=== PATIENT | female | born 1940 | race Hispanic/Latino ===

== ENCOUNTER 2017-09-14 07:55 | Day surgery (SDC) | payer OTHER, MEDICARE ==
[~2017-09-14] VITALS: Ht 142.2 cm; Wt 70.1 kg
[2017-09-14 08:45] VITALS: BP 177/85
[2017-09-14] MEDS ORDERED: VALS40TA10 PO (09:16)
[2017-09-14] MEDS ORDERED: METF10004 PO (09:16)
[2017-09-14] MEDS ORDERED: PANT40TA25 PO (09:16)
[2017-09-14] MEDS ORDERED: PREG50 PO (09:16)
[2017-09-14] MEDS ORDERED: METO50TA18 PO (09:16)
[2017-09-14] MEDS ORDERED: SITA100T12 PO (09:16)
[2017-09-14] MEDS ORDERED: LORA10CA9 PO (09:16)
[2017-09-14] MEDS ORDERED: NITR0.4T50 SL (09:16)
[2017-09-14] MEDS ORDERED: GLIP5TAB11 PO (09:16)
[2017-09-14] MEDS ORDERED: ATOR20TA65 PO (09:16)
[2017-09-14] MEDS ORDERED: ALBU90AE IH (09:16)
[2017-09-14] MEDS ORDERED: IRON1TAB91 PO (09:16)
[2017-09-14] MEDS ORDERED: SODIUM CHLORIDE 0.9% 1000ML 1,000 ML IV ONE (09:18)
[2018-01-20] MEDS ORDERED: POTA-79 PO (16:03)
[2018-01-20] MEDS ORDERED: LATA2.5D15 OP (16:03)
[2018-01-20] MEDS ORDERED: RISE35TA12 PO (16:03)
[2018-01-20] MEDS ORDERED: SITA100T12 PO (16:03)
[2018-01-20] MEDS ORDERED: FURO40TA7 PO (16:03)
== END 2017-09-14 10:16 | disposition home or self-care (01) ==
LOC: DAH 07:55 → ENDO 07:55
PROVIDERS: ATTEND Internal Medicine Gastroenterology
DX: I85.00 Esophageal varices without bleeding (principal); B19.20 Unspecified viral hepatitis C without hepatic coma; K74.60 Unspecified cirrhosis of liver; I25.10 Atherosclerotic heart disease of native coronary artery without angina pectoris; I12.0 Hypertensive chronic kidney disease with stage 5 chronic kidney disease or end stage renal disease; E11.22 Type 2 diabetes mellitus with diabetic chronic kidney disease; N18.6 End stage renal disease; E11.39 Type 2 diabetes mellitus with other diabetic ophthalmic complication; H40.9 Unspecified glaucoma; M19.90 Unspecified osteoarthritis, unspecified site; Z79.899 Other long term (current) drug therapy; Z99.2 Dependence on renal dialysis
CPT/HCPCS: 43235; 82948 ×2; 93005; A4606; J7030; G9654

== ENCOUNTER → 2017-11-19 | Outpatient (CLI) | payer MEDICARE, OTHER ==
[~2017-11-19] MED LIST: ALBU90AE IH; ATOR20TA65 PO; FURO40TA7 PO; GLIP5TAB11 PO; IRON1TAB41 PO; IRON1TAB91 PO; LATA2.5D15 OP; LORA10CA9 PO; METF10004 PO; METO50TA18 PO; NITR0.4T50 SL; PANT40TA25 PO; POTA-79 PO; PREG50 PO; REGADENOSON 0.4 MG/5 ML PF SYG IVP SCH; RISE35TA12 PO; SITA100T12 PO; VALS40TA11 PO
== END | disposition home or self-care (01) ==
LOC: SHCH 10:00
PROVIDERS: ATTEND Internal Medicine Cardiovascular Disease
DX: I25.119 Atherosclerotic heart disease of native coronary artery with unspecified angina pectoris (principal); E78.2 Mixed hyperlipidemia
CPT/HCPCS: 78452; 93017; 96374; A9500 ×2; J2785

== ENCOUNTER → 2018-01-06 | Outpatient (CLI) | payer MEDICARE, OTHER ==
[~2018-01-06] MED LIST changes: -REGADENOSON 0.4 MG/5 ML PF SYG IVP SCH
== END | disposition home or self-care (01) ==
LOC: SHCH 11:33
PROVIDERS: ATTEND Internal Medicine Cardiovascular Disease
DX: I48.0 Paroxysmal atrial fibrillation (principal)
CPT/HCPCS: 93306

== ENCOUNTER 2018-01-22 07:13 | Day surgery (SDC) | payer OTHER ==
[2018-01-20 13:31] VITALS: BP 125/67
[2018-01-20 13:31] LABS: BASOPHILS % (AUTO) 0.4 % (0.0-5.0); EOSINOPHILS % (AUTO) 2.3 % (0.0-8.0); HEMATOCRIT 29.5 % (36-48); LYMPHOCYTES % (AUTO) 18.2 % (21.0-51.0); MEAN CORPUSCULAR HEMOGLOBIN 31.3 pg (27.0-33.0); MEAN CORPUSCULAR HGB CONC 33.4 g/dL (32.0-36.0); MEAN CORPUSCULAR VOLUME 93.5 fL (79-99); NEUTROPHILS % (AUTO) 72.1 % (40.0-77.0); PLATELET COUNT (AUTO) 88 K/uL (130-400); RED BLOOD CELL COUNT(AUTO) 3.15 MIL/uL (4.00-5.50); RED CELL DISTRIBUTION WIDTH 16.3 % (11.0-15.5); WHITE BLOOD COUNT (AUTO) 2.7 K/uL (4.8-10.8)
[2018-01-20 13:41] LABS: CREATININE 1.5 mg/dL (0.5-1.5); POTASSIUM 5.2 mmol/L (3.5-5.1)
[2018-01-20 13:44] LABS: INR 1.09 (0.85-1.15); PARTIAL THROMBOPLASTIN TIME 27.5 SEC (26.3-35.5); PROTHROMBIN TIME 11.4 SEC (9.6-11.6)
[2018-01-20 14:06] LABS: APPEARANCE,URINE Clear (CLEAR); BILIRUBIN,URINE Negative (NEGATIVE); COLOR,URINE Dark Yellow (YELLOW); GLUCOSE, URINE (UA) Negative (NEGATIVE); KETONES,URINE Negative (NEGATIVE); LEUKOCYTE ESTERASE ,URINE Negative (NEGATIVE); NITRATE,URINE Negative (NEGATIVE); OCCULT BLOOD,URINE Negative (NEGATIVE); PROTEIN,URINE Trace (NEGATIVE)
[2018-01-20 14:14] LABS: BAND NEUTROPHILS % (MANUAL) 1 % (0-2); BASOPHILS % (MANUAL) 1 % (0-2); EOSINOPHILS % (MANUAL) 2 % (1-6); LYMPHOCYTES % (MANUAL) 22 % (22-44); MAN.DIFF COMMENT-IMPRESSION MANUAL DIFFERENTIAL; MONOCYTES % (MANUAL) 6 % (2-9); PLATELET MORPHOLOGY COMMENT DECREASED; SEGMENTED NEUTROPHILS % 68 % (40-70)
[2018-01-20 14:31] LABS: RBC,URINE 0-1 /HPF (0-1); WBC,URINE 0-1 /HPF (0-1)
[2018-01-20 14:32] LABS: BACTERIA,URINE Few /HPF (None Seen); SQUAMOUS EPITHELIAL CELL,UR Few /HPF (0-2)
[~2018-01-22] VITALS: Ht 147.3 cm; Wt 70.3 kg
[2018-01-22] VITALS (15 sets, daily range): BP systolic 119–150; BP diastolic 55–77
[~2018-01-22 07:13] MED LIST changes: -ALBU90AE IH; -IRON1TAB41 PO; -IRON1TAB91 PO; -LORA10CA9 PO; -NITR0.4T50 SL; +PHARMACY COMMUNICATION MISC SCH
[2018-01-22] MEDS ORDERED: IRON1TAB41 PO (08:24)
[2018-01-22] MEDS ORDERED: SODIUM CHLORIDE 0.9% 1000ML 1,000 ML IV ONE (09:53)
[2018-01-22] MEDS ORDERED: NITROGLYCERIN 5 MG/ML 10 ML VIAL IV ONE (11:47)
[2018-01-22] MEDS ORDERED: BIVALIRUDIN 250 MG/VIAL IV ONE (11:47)
[2018-01-22] MEDS ORDERED: HEPARIN SODIUM 1000UNIT/ML 10ML VIAL ONE (11:47)
[2018-01-22] MEDS ORDERED: ISOVUE-370 50ML VIAL IV ONE (11:47)
[2018-01-22] MEDS ORDERED: IOPAMIDOL-370 100 ML VIAL IV ONE (11:48)
[2018-01-22] MEDS ORDERED: LIDOCAINE HCL 2% 20ML ONE (11:48)
[2018-01-22] MEDS ORDERED: LABETALOL HCL 5 MG/ML 20ML VIAL IV ONE (12:49)
[2018-01-22] MEDS ORDERED: HYDRALAZINE HCL 20 MG/ML VIAL ONE (13:04)
[2018-01-22] MEDS ORDERED: SODIUM CHLORIDE 0.9% 1000ML 1,000 ML IV SCH (13:07)
[2018-01-22] MEDS ORDERED: GLUCAGON 1MG KIT 1 MG ML IM PRN (13:15)
[2018-01-22] MEDS ORDERED: DEXTROSE 50%-WATER 50 ML DISP.SYRIN IV PRN (13:15)
[2018-01-22] MEDS ORDERED: FUROSEMIDE 10 MG/ML 2ML VIAL ONE (13:20)
[2018-01-22] MEDS ORDERED: INSULIN HUMULIN R 100 UNIT/ML 3ML ONE (16:41)
[2018-01-22] MEDS ORDERED: INSULIN HUMULIN R 100 UNIT/ML 3ML SQ SCH (21:00)
== END 2018-01-22 20:03 | disposition home or self-care (01) ==
LOC: DAH 07:13
PROVIDERS: ATTEND Internal Medicine Cardiovascular Disease
DX: I25.119 Atherosclerotic heart disease of native coronary artery with unspecified angina pectoris (principal); Z68.30 Body mass index [BMI] 30.0-30.9, adult; Z79.84 Long term (current) use of oral hypoglycemic drugs; Z79.899 Other long term (current) drug therapy; I48.3 Typical atrial flutter; E55.9 Vitamin D deficiency, unspecified; E78.00 Pure hypercholesterolemia, unspecified; Z79.4 Long term (current) use of insulin; Z95.5 Presence of coronary angioplasty implant and graft; I11.0 Hypertensive heart disease with heart failure; I50.9 Heart failure, unspecified; Z90.710 Acquired absence of both cervix and uterus; Z90.49 Acquired absence of other specified parts of digestive tract; Z98.890 Other specified postprocedural states; Z82.49 Family history of ischemic heart disease and other diseases of the circulatory system; D64.89 Other specified anemias; I48.91 Unspecified atrial fibrillation; G47.33 Obstructive sleep apnea (adult) (pediatric); Z88.8 Allergy status to other drugs, medicaments and biological substances; I21.3 ST elevation (STEMI) myocardial infarction of unspecified site
CPT/HCPCS: 36415; 71045; 80048; 81001; 82948 ×3; 85025; 85610; 85730; 93005; 93458; A4606; C1760; C1894; J0360; J1644; J1815; J1940; J3490 ×3; J7030; Q9967; J0583

== ENCOUNTER 2018-01-26 10:56 | Inpatient (IN) | payer OTHER ==
[~2018-01-26] VITALS: Ht 152.4 cm; Wt 66.5 kg
[2018-01-26] VITALS (11 sets, daily range): BP systolic 124–169; BP diastolic 46–99
[~2018-01-26 10:56] MED LIST changes: +IRON1TAB41 PO; -PHARMACY COMMUNICATION MISC SCH
[2018-01-26] MEDS ORDERED: ATROPINE SULFATE 0.1 MG/ML 10 ML SYG IVP ONE ×4 (11:03→18:30)
[2018-01-26] MEDS ORDERED: DOPAMINE HCL 400 MG/D5%-WATER 250 ML IV ONE (11:08)
[2018-01-26] MEDS ORDERED: GLUCAGON 1MG KIT 1 MG ML ONE (11:09)
[2018-01-26 11:22] LABS: BASOPHILS % (AUTO) 0.5 % (0.0-5.0); EOSINOPHILS % (AUTO) 1.8 % (0.0-8.0); LYMPHOCYTES % (AUTO) 22.4 % (21.0-51.0); MEAN CORPUSCULAR HEMOGLOBIN 30.7 pg (27.0-33.0); MEAN CORPUSCULAR HGB CONC 33.3 g/dL (32.0-36.0); MEAN CORPUSCULAR VOLUME 92.4 fL (79-99); MONOCYTES % (AUTO) 8.4 % (3.0-13.0); NEUTROPHILS % (AUTO) 66.9 % (40.0-77.0); NUCLEATED RED BLOOD CELLS 0.1 % (0.0-0.19); PLATELET COUNT (AUTO) 96 K/uL (130-400); RED BLOOD CELL COUNT(AUTO) 3.35 MIL/uL (4.00-5.50); WHITE BLOOD COUNT (AUTO) 4.3 K/uL (4.8-10.8)
[2018-01-26 11:29] LABS: CREATININE 2.6 mg/dL (0.5-1.5); POTASSIUM 5.7 mmol/L (3.5-5.1)
[2018-01-26] MEDS ORDERED: NOREPINEPHRINE BITARTRATE 1 MG/1 ML ML IV ONE ×2 (11:30→11:31)
[2018-01-26] MEDS ORDERED: SODIUM CHLORIDE 0.9% 1000ML 1,000 ML IV ONE (11:30)
[2018-01-26] MEDS ORDERED: SODIUM CHLORIDE 0.9% 500ML 500 ML IV ONE (11:31)
[2018-01-26 11:40] LABS: INR 1.09 (0.85-1.15); PARTIAL THROMBOPLASTIN TIME 26.1 SEC (26.3-35.5); PROTHROMBIN TIME 11.4 SEC (9.6-11.6)
[2018-01-26 11:45] LABS: ALBUMIN 3.4 g/dL (3.5-5.0); CREATINE KINASE MB 1.1 ng/mL (0.5-3.6); TOTAL PROTEIN, SERUM 6.9 g/dL (6.0-8.3)
[2018-01-26] MEDS ORDERED: NITROGLYCERIN 0.4 MG SL TAB SL PRN (11:45)
[2018-01-26] MEDS ORDERED: ACETAMINOPHEN 325 MG TAB PO PRN ×2 (11:45)
[2018-01-26] MEDS ORDERED: MAG HYDROX/AL HYDROX/SIMETH ES 30 ML SUSP UDCUP PO PRN (11:45)
[2018-01-26] MEDS ORDERED: ONDANSETRON HCL 4 MG/2 ML VIAL IV PRN (11:45)
[2018-01-26] MEDS ORDERED: GUAIFENESIN-DM 200/20 MG 10 ML PO PRN (11:45)
[2018-01-26] MEDS ORDERED: MORPHINE SULFATE 2 MG/ML 1ML SYG IV PRN (11:45)
[2018-01-26] MEDS ORDERED: LACTULOSE 20 GM/30 ML UDCUP PO PRN (11:45)
[2018-01-26] MEDS ORDERED: ACETAMINOPHEN-CODEINE 300/30MG TAB PO PRN (11:45)
[2018-01-26] MEDS ORDERED: SODIUM POLYSTYRENE SULFONATE 15 GM/60 ML ML ONE (13:29)
[2018-01-26] MEDS ORDERED: SODIUM POLYSTYRENE SULFONATE 15 GM/60 ML ML RC SCH (13:30)
[2018-01-26 16:11] LABS: ABG HCO3 16.3 mmol/L (21.0-28.0); ABG PCO2 31 mmHg (32-45)
[2018-01-26] MEDS ORDERED: SODIUM POLYSTYRENE SULFONATE 15 GM/60 ML ML NG ONE (16:30)
[2018-01-26] MEDS: INSULIN HUMULIN R 100 UNIT/ML 3ML SQ SCH ×2 (16:30→20:53)
[2018-01-26] MEDS: SODIUM CHLORIDE 0.9% 1000ML 1,000 ML IV SCH ×2 (17:33→21:43)
[2018-01-26] MEDS ORDERED: NITR0.4T50 SL (18:30)
[2018-01-26] MEDS ORDERED: DOPAMINE HCL 800 MG in SODIUM CHLORIDE 0.9% 240 ML IV PRN (19:00)
[2018-01-26] MEDS ORDERED: DOPAMINE 800MG/D5 250ML 250 ML IV ONE (19:10)
[2018-01-26] MEDS ORDERED: PHARMACY COMMUNICATION MISC SCH (19:15)
[2018-01-26] MEDS ORDERED: WATER IV PRN (19:18)
[2018-01-26] MEDS ORDERED: DOPAMINE HCL IV PRN (19:18)
[2018-01-26] MEDS ORDERED: DEXTROSE 5% IV PRN (19:18)
[2018-01-26] MEDS: DOPAMINE HCL 400 MG/D5%-WATER 250 ML IV PRN (20:38)
[2018-01-26] MEDS: FAMOTIDINE 20MG TAB 20 MG TAB PO SCH (20:51)
[2018-01-26 22:29] LABS: CREATINE KINASE MB 1.3 ng/mL (0.5-3.6); CREATINE KINASE, TOTAL 56 U/L (21-232); MYOGLOBIN 161 ng/mL (10-92); POTASSIUM 4.8 mmol/L (3.5-5.1); TROPONIN I < 0.04 ng/mL (0.00-0.06)
[2018-01-27] VITALS (25 sets, daily range): BP systolic 87–155; BP diastolic 38–89
[2018-01-27] MEDS: SODIUM CHLORIDE 0.9% 1000ML 1,000 ML IV SCH ×2 (00:39→12:45)
[2018-01-27] MEDS: DOPAMINE HCL 400 MG/D5%-WATER 250 ML IV PRN (02:23)
[2018-01-27 04:04] LABS: HEMATOCRIT 30.9 % (36-48); MEAN CORPUSCULAR HEMOGLOBIN 30.6 pg (27.0-33.0); MEAN CORPUSCULAR HGB CONC 33.5 g/dL (32.0-36.0); MEAN CORPUSCULAR VOLUME 91.4 fL (79-99); PLATELET COUNT (AUTO) 118 K/uL (130-400); RED BLOOD CELL COUNT(AUTO) 3.38 MIL/uL (4.00-5.50); RED CELL DISTRIBUTION WIDTH 15.8 % (11.0-15.5)
[2018-01-27 04:19] LABS: CREATININE 2.3 mg/dL (0.5-1.5); POTASSIUM 4.8 mmol/L (3.5-5.1)
[2018-01-27] MEDS: INSULIN HUMULIN R 100 UNIT/ML 3ML SQ SCH ×4 (07:26→21:00)
[2018-01-27 09:04] LABS: APPEARANCE,URINE Clear (CLEAR); BILIRUBIN,URINE Negative (NEGATIVE); COLOR,URINE Dark Yellow (YELLOW); GLUCOSE, URINE (UA) Negative (NEGATIVE); KETONES,URINE Negative (NEGATIVE); LEUKOCYTE ESTERASE ,URINE Small (NEGATIVE); NITRATE,URINE Negative (NEGATIVE); OCCULT BLOOD,URINE Negative (NEGATIVE); PROTEIN,URINE POS 1+ (NEGATIVE); UROBILINOGEN,URINE 0.2 mg/dL (0.2-1.0)
[2018-01-27 09:37] LABS: BACTERIA,URINE Moderate /HPF (None Seen); RBC,URINE 0-1 /HPF (0-1)
[2018-01-27] MEDS: PREGABALIN 25 MG CAP PO SCH ×2 (10:00→20:37)
[2018-01-27] MEDS: ENOXAPARIN SODIUM 30 MG/0.3 ML SQ SCH (10:00)
[2018-01-27] MEDS: LINAGLIPTIN 5 MG TABLET PO SCH (10:00)
[2018-01-27] MEDS ORDERED: CEFTRIAXONE 1GM/D5W 50ML 50 ML IV SCH (11:15)
[2018-01-27] MEDS ORDERED: CEFTRIAXONE SODIUM 1 GM IVP SCH (11:30)
[2018-01-27] MEDS: FAMOTIDINE 20MG TAB 20 MG TAB PO SCH (20:37)
[2018-01-27] MEDS: GLIPIZIDE 5 MG TABLET PO SCH (20:37)
[2018-01-28] VITALS (16 sets, daily range): BP systolic 117–165; BP diastolic 43–102
[2018-01-28 03:53] LABS: HEMATOCRIT 26.2 % (36-48); MEAN CORPUSCULAR HEMOGLOBIN 30.6 pg (27.0-33.0); MEAN CORPUSCULAR HGB CONC 32.9 g/dL (32.0-36.0); MEAN CORPUSCULAR VOLUME 93.2 fL (79-99); PLATELET COUNT (AUTO) 67 K/uL (130-400); RED BLOOD CELL COUNT(AUTO) 2.81 MIL/uL (4.00-5.50); RED CELL DISTRIBUTION WIDTH 15.8 % (11.0-15.5); WHITE BLOOD COUNT (AUTO) 5.2 K/uL (4.8-10.8)
[2018-01-28 04:13] LABS: CREATININE 1.9 mg/dL (0.5-1.5); POTASSIUM 3.7 mmol/L (3.5-5.1)
[2018-01-28 04:31] LABS: PLATELET MORPHOLOGY COMMENT DECREASED
[2018-01-28] MEDS: SODIUM CHLORIDE 0.9% 1000ML 1,000 ML IV SCH (05:32)
[2018-01-28] MEDS: INSULIN HUMULIN R 100 UNIT/ML 3ML SQ SCH ×4 (06:40→21:11)
[2018-01-28] MEDS: FERROCITE PLUS PO SCH (09:00)
[2018-01-28] MEDS: POTASSIUM CHLORIDE 20 MEQ ERTAB PO SCH (09:00)
[2018-01-28] MEDS: PREGABALIN 25 MG CAP PO SCH (09:17)
[2018-01-28] MEDS: PANTOPRAZOLE SODIUM 40 MG TABLET.DR PO SCH (09:18)
[2018-01-28] MEDS: GLIPIZIDE 5 MG TABLET PO SCH ×2 (09:18→21:07)
[2018-01-28] MEDS: LINAGLIPTIN 5 MG TABLET PO SCH (09:18)
[2018-01-28] MEDS: ATORVASTATIN CALCIUM 20 MG TABLET PO SCH (09:18)
[2018-01-28] MEDS: ENOXAPARIN SODIUM 30 MG/0.3 ML SQ SCH (09:20)
[2018-01-28] MEDS ORDERED: MEROPENEM 500MG+NS 50ML 50 ML IV SCH (14:00)
[2018-01-28] MEDS: MEROPENEM 500 MG VIAL IVP SCH ×2 (14:52→21:27)
[2018-01-28] MEDS: DOXYCYCLINE 100MG+NS 250ML 250 ML IV SCH (16:12)
[2018-01-28] MEDS: FAMOTIDINE 20MG TAB 20 MG TAB PO SCH (21:07)
[2018-01-29] VITALS (7 sets, daily range): BP systolic 117–173; BP diastolic 54–76
[2018-01-29] MEDS: DOXYCYCLINE 100MG+NS 250ML 250 ML IV SCH ×2 (03:00→15:25)
[2018-01-29 04:26] LABS: HEMATOCRIT 25.8 % (36-48); MEAN CORPUSCULAR HEMOGLOBIN 31.7 pg (27.0-33.0); MEAN CORPUSCULAR HGB CONC 34.4 g/dL (32.0-36.0); MEAN CORPUSCULAR VOLUME 92.1 fL (79-99); PLATELET COUNT (AUTO) 77 K/uL (130-400); RED CELL DISTRIBUTION WIDTH 16.2 % (11.0-15.5)
[2018-01-29 05:04] LABS: CREATININE 1.8 mg/dL (0.5-1.5)
[2018-01-29 05:20] LABS: POTASSIUM 2.9 mmol/L (3.5-5.1)
[2018-01-29] MEDS: MEROPENEM 500 MG VIAL IVP SCH ×3 (05:57→22:18)
[2018-01-29] MEDS: POTASSIUM CHLORIDE 20 MEQ ERTAB PO SCH ×3 (06:04→18:01)
[2018-01-29] MEDS: INSULIN HUMULIN R 100 UNIT/ML 3ML SQ SCH ×4 (06:06→21:00)
[2018-01-29] MEDS: FERROCITE PLUS PO SCH (09:00)
[2018-01-29] MEDS: PANTOPRAZOLE SODIUM 40 MG TABLET.DR PO SCH (10:46)
[2018-01-29] MEDS: ATORVASTATIN CALCIUM 20 MG TABLET PO SCH (10:46)
[2018-01-29] MEDS: LINAGLIPTIN 5 MG TABLET PO SCH (10:46)
[2018-01-29] MEDS: GLIPIZIDE 5 MG TABLET PO SCH ×2 (10:46→22:17)
[2018-01-29] MEDS: ENOXAPARIN SODIUM 30 MG/0.3 ML SQ SCH (10:47)
[2018-01-29] MEDS ORDERED: CEFAZOLIN 1GM / D5W 50ML 50 ML IV PRN (14:00)
[2018-01-29] MEDS ORDERED: CEFAZOLIN SODIUM 1 GM VIAL IVP SCH (14:15)
[2018-01-29] MEDS: FAMOTIDINE 20MG TAB 20 MG TAB PO SCH (22:16)
[2018-01-30] MEDS: DOXYCYCLINE 100MG+NS 250ML 250 ML IV SCH ×2 (02:44→15:31)
[2018-01-30 04:10] VITALS: BP 149/89
[2018-01-30 04:40] LABS: HEMATOCRIT 25.8 % (36-48); MEAN CORPUSCULAR HEMOGLOBIN 30.6 pg (27.0-33.0); MEAN CORPUSCULAR HGB CONC 32.7 g/dL (32.0-36.0); MEAN CORPUSCULAR VOLUME 93.4 fL (79-99); NUCLEATED RED BLOOD CELLS 0.1 % (0.0-0.19); PLATELET COUNT (AUTO) 73 K/uL (130-400); RED BLOOD CELL COUNT(AUTO) 2.76 MIL/uL (4.00-5.50); RED CELL DISTRIBUTION WIDTH 16.3 % (11.0-15.5); WHITE BLOOD COUNT (AUTO) 2.2 K/uL (4.8-10.8)
[2018-01-30 04:47] LABS: CREATININE 1.5 mg/dL (0.5-1.5)
[2018-01-30 04:49] LABS: INR 1.09 (0.85-1.15); PARTIAL THROMBOPLASTIN TIME 35.5 SEC (26.3-35.5); PROTHROMBIN TIME 11.4 SEC (9.6-11.6)
[2018-01-30 05:13] LABS: EOSINOPHILS % (MANUAL) 3 % (1-6); LYMPHOCYTES % (MANUAL) 11 % (22-44); MONOCYTES % (MANUAL) 5 % (2-9); SEGMENTED NEUTROPHILS % 81 % (40-70)
[2018-01-30 05:14] LABS: MAN.DIFF COMMENT-IMPRESSION MANUAL DIFFERENTIAL; PLATELET MORPHOLOGY COMMENT DECREASED
[2018-01-30] MEDS: INSULIN HUMULIN R 100 UNIT/ML 3ML SQ SCH ×3 (06:03→21:00)
[2018-01-30] MEDS: MEROPENEM 500 MG VIAL IVP SCH ×3 (06:11→22:23)
[2018-01-30 07:00] VITALS: BP 164/74
[2018-01-30] MEDS: LINAGLIPTIN 5 MG TABLET PO SCH (09:00)
[2018-01-30] MEDS: GLIPIZIDE 5 MG TABLET PO SCH ×2 (09:00→22:23)
[2018-01-30] MEDS: FERROCITE PLUS PO SCH (09:00)
[2018-01-30] MEDS: PANTOPRAZOLE SODIUM 40 MG TABLET.DR PO SCH (09:00)
[2018-01-30] MEDS: ATORVASTATIN CALCIUM 20 MG TABLET PO SCH (09:00)
[2018-01-30 11:00] VITALS: BP 144/76
[2018-01-30] MEDS: DiphenhydrAMINE HCL 50 MG/ML VIAL IV SCH (12:00)
[2018-01-30] MEDS: CEFAZOLIN SODIUM 1 GM VIAL IVP SCH ×2 (15:30→15:31)
[2018-01-30 16:00] VITALS: BP 194/88
[2018-01-30] MEDS: HYDRALAZINE HCL 20 MG/ML VIAL IV PRN (17:40)
[2018-01-30 20:21] VITALS: BP 155/72
[2018-01-30] MEDS: FAMOTIDINE 20MG TAB 20 MG TAB PO SCH (22:23)
[2018-01-30 23:46] VITALS: BP 157/83
[2018-01-31] MEDS: DOXYCYCLINE 100MG+NS 250ML 250 ML IV SCH ×2 (02:23→14:34)
[2018-01-31 04:05] VITALS: BP 155/78
[2018-01-31 04:34] LABS: HEMATOCRIT 26.4 % (36-48); MEAN CORPUSCULAR HEMOGLOBIN 31.9 pg (27.0-33.0); MEAN CORPUSCULAR HGB CONC 34.5 g/dL (32.0-36.0); MEAN CORPUSCULAR VOLUME 92.4 fL (79-99); PLATELET COUNT (AUTO) 80 K/uL (130-400); RED BLOOD CELL COUNT(AUTO) 2.86 MIL/uL (4.00-5.50); RED CELL DISTRIBUTION WIDTH 16.2 % (11.0-15.5); WHITE BLOOD COUNT (AUTO) 2.3 K/uL (4.8-10.8)
[2018-01-31 04:42] LABS: CREATININE 1.2 mg/dL (0.5-1.5); POTASSIUM 4.2 mmol/L (3.5-5.1)
[2018-01-31 06:11] LABS: EOSINOPHILS % (MANUAL) 3 % (1-6); LYMPHOCYTES % (MANUAL) 16 % (22-44); MAN.DIFF COMMENT-IMPRESSION MANUAL DIFFERENTIAL; MONOCYTES % (MANUAL) 9 % (2-9); PLATELET MORPHOLOGY COMMENT DECREASED; SEGMENTED NEUTROPHILS % 72 % (40-70)
[2018-01-31] MEDS: MEROPENEM 500 MG VIAL IVP SCH ×3 (06:38→21:55)
[2018-01-31 07:00] VITALS: BP 158/94
[2018-01-31] MEDS: INSULIN HUMULIN R 100 UNIT/ML 3ML SQ SCH ×4 (07:30→21:00)
[2018-01-31] MEDS: PANTOPRAZOLE SODIUM 40 MG TABLET.DR PO SCH (10:16)
[2018-01-31] MEDS: LINAGLIPTIN 5 MG TABLET PO SCH (10:16)
[2018-01-31] MEDS: ATORVASTATIN CALCIUM 20 MG TABLET PO SCH (10:16)
[2018-01-31] MEDS: POTASSIUM CHLORIDE 20 MEQ ERTAB PO SCH (10:16)
[2018-01-31] MEDS: GLIPIZIDE 5 MG TABLET PO SCH ×2 (10:16→21:00)
[2018-01-31 11:00] VITALS: BP 167/114
[2018-01-31] MEDS: DiphenhydrAMINE HCL 50 MG/ML VIAL IV SCH (12:00)
[2018-01-31 16:00] VITALS: BP 174/91
[2018-01-31 19:33] VITALS: BP 157/71
[2018-01-31] MEDS: FAMOTIDINE 20MG TAB 20 MG TAB PO SCH (21:55)
[2018-01-31 23:50] VITALS: BP 184/76
[2018-01-31] MEDS: HYDRALAZINE HCL 20 MG/ML VIAL IV PRN (23:52)
[2018-02-01] VITALS (12 sets, daily range): BP systolic 153–175; BP diastolic 63–90
[2018-02-01] MEDS: DOXYCYCLINE 100MG+NS 250ML 250 ML IV SCH ×2 (02:12→13:30)
[2018-02-01 05:03] LABS: HEMATOCRIT 27.1 % (36-48); MEAN CORPUSCULAR HEMOGLOBIN 31.7 pg (27.0-33.0); MEAN CORPUSCULAR HGB CONC 34.1 g/dL (32.0-36.0); NUCLEATED RED BLOOD CELLS 0.1 % (0.0-0.19); PLATELET COUNT (AUTO) 88 K/uL (130-400); RED BLOOD CELL COUNT(AUTO) 2.92 MIL/uL (4.00-5.50); RED CELL DISTRIBUTION WIDTH 16.5 % (11.0-15.5)
[2018-02-01 05:15] LABS: CREATININE 1.2 mg/dL (0.5-1.5); POTASSIUM 4.3 mmol/L (3.5-5.1)
[2018-02-01] MEDS: INSULIN HUMULIN R 100 UNIT/ML 3ML SQ SCH ×4 (05:42→21:00)
[2018-02-01] MEDS: MEROPENEM 500 MG VIAL IVP SCH ×3 (05:51→21:42)
[2018-02-01] MEDS ORDERED: ISOVUE-300 100 ML VIAL IV ONE (08:31)
[2018-02-01] MEDS ORDERED: LIDOCAINE HCL 1% 20 ML VIAL ONE (08:31)
[2018-02-01] MEDS ORDERED: BUPIVACAINE/PF 0.25% 30ML VIAL IJ ONE (08:31)
[2018-02-01] MEDS ORDERED: CEFAZOLIN SODIUM 1 GM VIAL ONE (08:31)
[2018-02-01] MEDS ORDERED: MIDAZOLAM HCL 1 MG/ML 2ML VIAL ONE (10:48)
[2018-02-01] MEDS ORDERED: MORPHINE SULFATE 4 MG/1ML SYG ONE (10:49)
[2018-02-01] MEDS ORDERED: ACETAMINOPHEN 325 MG TAB PO PRN ×2 (11:30)
[2018-02-01] MEDS: GLIPIZIDE 5 MG TABLET PO SCH ×2 (12:31→21:41)
[2018-02-01] MEDS: LINAGLIPTIN 5 MG TABLET PO SCH (12:32)
[2018-02-01] MEDS: PANTOPRAZOLE SODIUM 40 MG TABLET.DR PO SCH (12:32)
[2018-02-01] MEDS: ATORVASTATIN CALCIUM 20 MG TABLET PO SCH (12:32)
[2018-02-01] MEDS: FERROCITE PLUS PO SCH ×2 (12:33→12:37)
[2018-02-01 15:21] LABS: ROCKY MT SPOTTED FEVER IGG <1:64 (Neg:<1:64); TYPHUS FEVER AB IGG <1:64 (Neg:<1:64)
[2018-02-01] MEDS: FAMOTIDINE 20MG TAB 20 MG TAB PO SCH (21:41)
[2018-02-02] VITALS (7 sets, daily range): BP systolic 144–188; BP diastolic 64–93
[2018-02-02 05:08] LABS: HEMATOCRIT 26.8 % (36-48); MEAN CORPUSCULAR HEMOGLOBIN 30.4 pg (27.0-33.0); MEAN CORPUSCULAR VOLUME 91.9 fL (79-99); NUCLEATED RED BLOOD CELLS 0.1 % (0.0-0.19); PLATELET COUNT (AUTO) 90 K/uL (130-400); RED BLOOD CELL COUNT(AUTO) 2.92 MIL/uL (4.00-5.50); RED CELL DISTRIBUTION WIDTH 15.9 % (11.0-15.5); WHITE BLOOD COUNT (AUTO) 3.7 K/uL (4.8-10.8)
[2018-02-02 05:14] LABS: CREATININE 1.3 mg/dL (0.5-1.5); POTASSIUM 4.3 mmol/L (3.5-5.1)
[2018-02-02] MEDS: MEROPENEM 500 MG VIAL IVP SCH (05:27)
[2018-02-02] MEDS: INSULIN HUMULIN R 100 UNIT/ML 3ML SQ SCH ×4 (05:55→20:43)
[2018-02-02] MEDS: FERROCITE PLUS PO SCH (09:00)
[2018-02-02] MEDS: ATORVASTATIN CALCIUM 20 MG TABLET PO SCH (09:18)
[2018-02-02] MEDS: PANTOPRAZOLE SODIUM 40 MG TABLET.DR PO SCH (09:18)
[2018-02-02] MEDS: LINAGLIPTIN 5 MG TABLET PO SCH (09:18)
[2018-02-02] MEDS: GLIPIZIDE 5 MG TABLET PO SCH ×2 (09:18→20:41)
[2018-02-02] MEDS: HYDRALAZINE HCL 20 MG/ML VIAL IV PRN (09:28)
[2018-02-02] MEDS: METOPROLOL TARTRATE 25 MG TAB PO SCH ×2 (13:28→20:41)
[2018-02-02] MEDS: FAMOTIDINE 20MG TAB 20 MG TAB PO SCH (20:41)
[2018-02-03 03:42] VITALS: BP 172/95
[2018-02-03 04:10] LABS: HEMATOCRIT 25.2 % (36-48); MEAN CORPUSCULAR HEMOGLOBIN 30.5 pg (27.0-33.0); MEAN CORPUSCULAR HGB CONC 33.3 g/dL (32.0-36.0); MEAN CORPUSCULAR VOLUME 91.5 fL (79-99); NUCLEATED RED BLOOD CELLS 0.2 % (0.0-0.19); PLATELET COUNT (AUTO) 92 K/uL (130-400); RED BLOOD CELL COUNT(AUTO) 2.76 MIL/uL (4.00-5.50); WHITE BLOOD COUNT (AUTO) 2.8 K/uL (4.8-10.8)
[2018-02-03] MEDS: HYDRALAZINE HCL 20 MG/ML VIAL IV PRN (04:13)
[2018-02-03 04:19] LABS: CREATININE 1.2 mg/dL (0.5-1.5); POTASSIUM 3.7 mmol/L (3.5-5.1)
[2018-02-03 04:29] LABS: B-TYPE NATRIURETIC PEPTIDE 400 pg/mL (0-100)
[2018-02-03 04:36] LABS: BAND NEUTROPHILS % (MANUAL) 2 % (0-2); LYMPHOCYTES % (MANUAL) 17 % (22-44); MAN.DIFF COMMENT-IMPRESSION MANUAL DIFFERENTIAL; MONOCYTES % (MANUAL) 7 % (2-9); SEGMENTED NEUTROPHILS % 74 % (40-70)
[2018-02-03] MEDS: INSULIN HUMULIN R 100 UNIT/ML 3ML SQ SCH ×4 (06:00→21:00)
[2018-02-03 07:24] VITALS: BP 162/82
[2018-02-03] MEDS ORDERED: RISEDRONATE 35 MG PO SCH (09:00)
[2018-02-03] MEDS: FERROCITE PLUS PO SCH (09:00)
[2018-02-03] MEDS: LINAGLIPTIN 5 MG TABLET PO SCH (09:45)
[2018-02-03] MEDS: GLIPIZIDE 5 MG TABLET PO SCH ×2 (10:25→21:07)
[2018-02-03] MEDS: ATORVASTATIN CALCIUM 20 MG TABLET PO SCH (10:25)
[2018-02-03] MEDS: PANTOPRAZOLE SODIUM 40 MG TABLET.DR PO SCH (10:25)
[2018-02-03] MEDS: METOPROLOL TARTRATE 25 MG TAB PO SCH ×2 (10:25→21:07)
[2018-02-03] MEDS: POTASSIUM CHLORIDE 20 MEQ ERTAB PO SCH (10:26)
[2018-02-03 11:45] VITALS: BP 152/88
[2018-02-03] MEDS: FUROSEMIDE 10 MG/ML 2ML VIAL IV SCH ×3 (12:00→17:19)
[2018-02-03] MEDS: POTASSIUM CHLORIDE 10% ELIXIR 20 MEQ/15 ML UDCUP PO SCH ×2 (12:36→21:19)
[2018-02-03 16:05] VITALS: BP 160/84
[2018-02-03 19:54] VITALS: BP 136/83
[2018-02-03] MEDS: FAMOTIDINE 20MG TAB 20 MG TAB PO SCH (21:07)
[2018-02-03 23:38] VITALS: BP 173/95
[2018-02-04] MEDS: FUROSEMIDE 10 MG/ML 2ML VIAL IV SCH ×4 (00:03→18:00)
[2018-02-04 03:59] VITALS: BP 166/107
[2018-02-04] MEDS ORDERED: HYDRALAZINE HCL 10 MG TABLET ONE (04:02)
[2018-02-04] MEDS: HYDRALAZINE HCL 20 MG/ML VIAL IV PRN (04:11)
[2018-02-04 04:26] LABS: HEMATOCRIT 29.5 % (36-48); MEAN CORPUSCULAR HEMOGLOBIN 30.4 pg (27.0-33.0); MEAN CORPUSCULAR HGB CONC 33.9 g/dL (32.0-36.0); MEAN CORPUSCULAR VOLUME 89.7 fL (79-99); PLATELET COUNT (AUTO) 105 K/uL (130-400); RED BLOOD CELL COUNT(AUTO) 3.29 MIL/uL (4.00-5.50); WHITE BLOOD COUNT (AUTO) 4.1 K/uL (4.8-10.8)
[2018-02-04 04:42] LABS: CREATININE 1.4 mg/dL (0.5-1.5); POTASSIUM 3.8 mmol/L (3.5-5.1)
[2018-02-04 04:49] LABS: LYMPHOCYTES % (MANUAL) 17 % (22-44); MONOCYTES % (MANUAL) 4 % (2-9); SEGMENTED NEUTROPHILS % 79 % (40-70)
[2018-02-04 04:50] LABS: B-TYPE NATRIURETIC PEPTIDE 310 pg/mL (0-100); MAN.DIFF COMMENT-IMPRESSION MANUAL DIFFERENTIAL
[2018-02-04 04:51] LABS: PLATELET MORPHOLOGY COMMENT SLIGHTLY DECREASED
[2018-02-04 05:03] LABS: % IRON SATURATION 14.8 % (22-44)
[2018-02-04] MEDS: INSULIN HUMULIN R 100 UNIT/ML 3ML SQ SCH ×3 (05:51→16:30)
[2018-02-04 07:00] VITALS: BP 147/83
[2018-02-04] MEDS ORDERED: RISEDRONATE 35 MG PO SCH (07:30)
[2018-02-04] MEDS ORDERED: COMPOUND IV MISC 1 EACH IVSOLN MISC PRN (07:45)
[2018-02-04] MEDS: FERROCITE PLUS PO SCH (09:00)
[2018-02-04] MEDS ORDERED: IRON SUCROSE COMPLEX 300 MG in SODIUM CHLORIDE 0.9% 50 ML IV SCH (09:00)
[2018-02-04] MEDS: METOPROLOL TARTRATE 25 MG TAB PO SCH (09:01)
[2018-02-04] MEDS: GLIPIZIDE 5 MG TABLET PO SCH (09:01)
[2018-02-04] MEDS: PANTOPRAZOLE SODIUM 40 MG TABLET.DR PO SCH (09:02)
[2018-02-04] MEDS: POTASSIUM CHLORIDE 10% ELIXIR 20 MEQ/15 ML UDCUP PO SCH (09:02)
[2018-02-04] MEDS: LINAGLIPTIN 5 MG TABLET PO SCH (09:02)
[2018-02-04] MEDS: ATORVASTATIN CALCIUM 20 MG TABLET PO SCH (09:02)
[2018-02-04 11:00] VITALS: BP 144/70
== END 2018-02-04 18:30 | disposition home or self-care (01) | DRG 242 ==
LOC: EDH 10:56 → EDHIP 11:44 → 2CH 15:20 → 2DH 01-29 03:31
PROVIDERS: ADMIT Internal Medicine; ATTEND Internal Medicine
PROC: 05HM33Z Insertion of Infusion Device into Right Internal Jugular Vein, Percutaneous Approach (ICD-10-PCS; principal; 2018-02-01)
PROC: 0JH604Z Insertion of Pacemaker, Single Chamber into Chest Subcutaneous Tissue and Fascia, Open Approach (ICD-10-PCS; 2018-02-01)
PROC: 02HK3JZ Insertion of Pacemaker Lead into Right Ventricle, Percutaneous Approach (ICD-10-PCS; 2018-02-01)
PROC: 4A143B0 Monitoring of Venous Pressure, Central, Percutaneous Approach (ICD-10-PCS; 2018-02-01)
DX: R00.1 Bradycardia, unspecified (principal); G93.40 Encephalopathy, unspecified; N39.0 Urinary tract infection, site not specified; N17.9 Acute kidney failure, unspecified; D61.818 Other pancytopenia; I13.0 Hypertensive heart and chronic kidney disease with heart failure and stage 1 through stage 4 chronic kidney disease, or unspecified chronic kidney disease; D46.9 Myelodysplastic syndrome, unspecified; I44.2 Atrioventricular block, complete; E11.65 Type 2 diabetes mellitus with hyperglycemia; E87.5 Hyperkalemia; E78.5 Hyperlipidemia, unspecified; I25.10 Atherosclerotic heart disease of native coronary artery without angina pectoris; E87.6 Hypokalemia; E11.22 Type 2 diabetes mellitus with diabetic chronic kidney disease; I48.2 Chronic atrial fibrillation; I50.9 Heart failure, unspecified; K74.60 Unspecified cirrhosis of liver; N18.9 Chronic kidney disease, unspecified; Z74.01 Bed confinement status; Z79.899 Other long term (current) drug therapy; Z95.5 Presence of coronary angioplasty implant and graft; Z90.710 Acquired absence of both cervix and uterus; Z91.040 Latex allergy status; Z88.0 Allergy status to penicillin; Z88.8 Allergy status to other drugs, medicaments and biological substances; Z91.048 Other nonmedicinal substance allergy status; Z83.3 Family history of diabetes mellitus; Z82.49 Family history of ischemic heart disease and other diseases of the circulatory system; Z80.0 Family history of malignant neoplasm of digestive organs
CPT/HCPCS: 33207; 36415; 36600; 70450; 70551; 71045; 76770; 80048; 80053; 81001; 82140; 82270; 82550; 82553; 82803; 82948; 83540; 83550; 83874; 83880; 84132; 84484; 85025; 85027; 85610; 85730; 86757; 87040; 87088; 93005; 93306; 97039; 99156; 99157; 99291; A4218; C1751; C1898; J0360; J0461; J0690; J0696; J1265; J1610; J1650; J1756; J1815; J1940; J2185; J2250; J2270; J3490; J7030; J7040; J7060; Q9967

== ENCOUNTER → 2018-09-08 | Outpatient (CLI) | payer OTHER ==
[~2018-09-08] MED LIST changes: +METF-446 PO; -METF10004 PO; +NITR0.4T50 SL
== END | disposition home or self-care (01) ==
LOC: RAH 08:48
PROVIDERS: ATTEND Internal Medicine Gastroenterology
DX: K74.69 Other cirrhosis of liver (principal); N28.1 Cyst of kidney, acquired
CPT/HCPCS: 76700; 93975